=== PATIENT | male | born 1960 | race Caucasian/White ===

== ENCOUNTER 2017-12-24 11:45 | Emergency (ER) | payer OTHER ==
[~2017-12-24] VITALS: Ht 177.8 cm; Wt 86.0 kg
[2017-12-24 12:37] LABS: APPEARANCE CLEAR ((CLEAR)); BILIRUBIN NEGATIVE; BLOOD SMALL; COLOR STRAW ((YELLOW)); GLUCOSE (STRIP) NEGATIVE; KETONES NEGATIVE; LEUKOCYTES NEGATIVE; NITRITE NEGATIVE; PROTEIN (STRIP) NEGATIVE; SPECIFIC GRAVITY 1.003 (1.000-1.030); UROBILINOGEN 0.2 MG/DL (0.2-1.0)
[2017-12-24 12:39] LABS: HEMATOCRIT 45.8 % (38.0-50.0); HEMOGLOBIN 16.4 G/DL (12.5-16.6); MCH 33.3 PG (29.0-34.0); MCHC 35.8 G/DL (30.0-36.0); MCV 92.9 FL (86-99); PLATELET COUNT 165 K/uL (156-360); RBC DIS.WIDTH-CV 11.7 % (11.8-14.6); RBC DIS.WIDTH-SD 39.9 % (39-53); RED BLOOD COUNT 4.93 M/uL (4.00-5.50); WHITE BLOOD COUNT 6.4 K/uL (4.1-10.2)
[2017-12-24 12:40] LABS: BACTERIA RARE /HPF; EPITHELIAL CELLS NONE SEEN /HPF; MUCUS NONE SEEN /LPF; RED BLOOD CELLS 0-5 /HPF (0-5); UCUL ADDED? NO; WHITE BLOOD CELLS NONE SEEN /HPF (0-5)
[2017-12-24 12:47] LABS: CHLORIDE 106 mEq/L (99-109); POTASSIUM 4.4 mEq/L (3.7-5.4); SODIUM 140 mEq/L (136-147)
[2017-12-24 12:49] LABS: GLUCOSE 99 mg/dL (70-99)
[2017-12-24 12:53] LABS: CREATININE 0.9 mg/dL (0.6-1.3); GFR ESTIMATE (CALCULATED) > 59 mL/min/ (58.99-99999)
[2017-12-24 12:54] LABS: UREA NITROGEN (BUN) 12 mg/dL (9-23)
[2017-12-24] MEDS ORDERED: MOTRIN600 MG PO (13:59)
[2017-12-24] MEDS ORDERED: ULTRAM50 MG PO (13:59)
[2017-12-24 14:34] VITALS: BP 131/78
== END 2017-12-24 14:49 | disposition home or self-care (01) ==
LOC: EME 11:45
DX: R10.9 Unspecified abdominal pain (principal); I72.3 Aneurysm of iliac artery; R31.9 Hematuria, unspecified; Z87.442 Personal history of urinary calculi; F17.200 Nicotine dependence, unspecified, uncomplicated
CPT/HCPCS: 74176; 80048; 81003; 85027; 99281; 99284; J1885